=== PATIENT | male | born 1985 | race African-American/Black ===

== ENCOUNTER 2023-12-03 17:32 | Emergency (ER) | payer OTHER, SELFPAY ==
[2023-12-03 17:36] VITALS: BP 142/85; PULSE 74; RESP 16; TEMP 37.2; O2SAT 98; BMI 28.7
--- NOTE | 2023-12-03 18:31 | ED_ITS ---
HPI - Burn/Smoke Inhalation <Modesta Gonzalez PA-C - Last Filed: 12/03/23 18:57> General Chief complaint: Burn/Smoke Inhalation Stated complaint: exposure to generator fumes Time Seen by Provider: 12/03/23 17:54 Source: patient Mode of arrival: Ambulatory History of Present Illness HPI Narrative: Patient is a 38-year-old male who presents due to concern for possible exposure to fumes today. He was at home when a char dust cleaner and salvager came to work in his house. The char dust cleaner and salvager was running their van generator outside his open garage. Could smell the fumes coming into the house. His household carbon monoxide detector alarmed. He left the house with the windows open. Later in the day he called the fire department and they came and used their monitor to test in the house for carbon monoxide. They did not detect any. His alarms were no longer going off. Patient went to urgent care and was sent to the [facility] ER. They told him that his vitals were fine and there was nothing else to do. He came to [facility] for assessment. Patient denies headache, dizziness, nausea, vision changes, weakness, malaise chest tightness or chest pain. He reports that he does feel anxious. He denies having any cough, chest tightness, wheeze after the incident occurred. Related Data Allergies Allergy/AdvReac Type Severity Reaction Status Date / Time No Known Drug Allergies Allergy Verified 12/03/23 17:43 Review of Systems <Modesta Gonzalez PA-C - Last Filed: 12/03/23 18:57> Review of Systems ROS Unobtainable: All systems reviewed & are unremarkable except as noted in HPI and below Patient History <Modesta Gonzalez PA-C - Last Filed: 12/03/23 18:57> Social History Smoking Status: Never smoker Smoking Status: Never smoker Substance Use Type: does not use Exam <Modesta Gonzalez PA-C - Last Filed: 12/03/23 18:57> Narrative Exam Narrative: GENERAL: 38 year old patient appears stated age. Well-developed patient, in no acute distress. NEURO: AOx3. HEAD: Atraumatic. Normocephalic. EYES: Pupils equal round and reactive. Extraocular motions intact. No scleral icterus. No injection or drainage. ENT: Nose without bleeding or purulent drainage. Airway patent. NECK: Trachea midline. Non tender CARDIOVASCULAR: Regular rate and rhythm without murmurs, gallops, or rubs. RESPIRATORY: Clear to auscultation. Breath sounds equal bilaterally. No wheezes, rales, or rhonchi. EXTREMITIES: No edema or joint tenderness. SKIN: No rash or erythema of visible areas Initial Vital Signs Initial Vital Signs: Vital Signs Temperature 98.9 F 12/03/23 17:36 Pulse Rate 74 12/03/23 17:36 Respiratory Rate 16 12/03/23 17:36 Blood Pressure 142/85 H 12/03/23 17:36 Pulse Oximetry 98 12/03/23 17:36 Oxygen Delivery Method Room Air 12/03/23 17:36 <Parveen Askew DO - Last Filed: 12/04/23 07:03> Initial Vital Signs Initial Vital Signs: Vital Signs Temperature 98.9 F 12/03/23 17:36 Pulse Rate 74 12/03/23 17:36 Respiratory Rate 16 12/03/23 17:36 Blood Pressure 142/85 H 12/03/23 17:36 Pulse Oximetry 98 12/03/23 17:36 Oxygen Delivery Method Room Air 12/03/23 17:36 Course <DARRON Sanford Last Filed: 12/03/23 18:57> Vital Signs Vital signs: Vital Signs - 8 hr 12/03/23 17:36 Temperature 98.9 F Pulse Rate 74 Respiratory Rate 16 Blood Pressure 142/85 H Pulse Oximetry 98 Oxygen Delivery Method Room Air <DO Hernán Hackett Last Filed: 12/04/23 07:03> Vital Signs Vital signs: Vital Signs - 8 hr 12/03/23 17:36 Temperature 98.9 F Pulse Rate 74 Respiratory Rate 16 Blood Pressure 142/85 H Pulse Oximetry 98 Oxygen Delivery Method Room Air MDM - Burn/Smoke Inhalation <DARRON Sanford Last Filed: 12/03/23 18:57> MDM Narrative Medical decision making narrative: Multiple etiologies for patient's symptoms considered including, but not limited to: Carbon monoxide exposure/poisoning, anxiety, panic attacks Patient reports a history of panic attacks. This occurred today and he started feeling short of breath, sweaty and like his chest was tight. He is identified the listening to Gospel music and taking deep breaths helps him recover from these events. He asked several questions about panic attacks and how they can be treated. He currently goes to family therapy. Low suspicion for carbon monoxide poisoning today based on my exam. Patient is coherent, anxious, denies any symptoms of headache, dizziness, lethargy, malaise, nausea, visual changes, chest pain, shortness of breath. He appears very well. His vital signs are normal. I provided reassurance that I do not believe that he was exposed to a dangerous level of carbon monoxide. It is reassured that the fire department with to his health there test was negative as well. We discussed making sure his alarms are still working when he gets home in case of any future exposure. Patient's symptoms improved over duration of stay with above-stated therapies. Findings and discharge diagnosis discussed with patient/family followed by verbalization of understanding Return precautions discussed with patient/family whom verbalize understanding of diagnosis and plan Discharge Plan Departure Patient Disposition: Home Clinical Impression: Suspected exposure to hazardous chemical Instructions: Preventing Carbon Monoxide Poisoning Activity Restrictions/Additional Instructions: * you do not have any symptoms of carbon monoxide poisoning today on assessment in the emergency room. Your vital signs are normal. Given the details of the possible exposure, I do not suspect that any new symptoms we will occur. *What to do: *Please continue to take your regular medications as directed. [ ] New medication prescriptions sent to your pharmacy: [ ] [ ] New medication written as a paper prescription [x] No new medications given *Please follow up with your primary care provider in 2-3 days, call for an appointment. Let them know you were seen in the Emergency Department and that we ask that you be seen in follow up. We will electronically transmit a record of today's note if your PCP is in our system *If you do not have a primary care provider please contact the [facility] Resource line at [phone]. They will ask some questions about your medical history and help get you set up with a doctor in the community. *Return to Emergency Department if you should have any new, worsening or concerning symptoms, such as [fever greater than 101 F, shaking chills, worsening pain, persistent vomiting or other concerning symptoms]. Referrals: ProviderMichi [Primary Care Provider] - Stand Alone Forms: Patient Portal/API ED Sign-out <Parveen Askew DO - Last Filed: 12/04/23 07:03> Cosign ED Attending Cosignature Attestation: Dr Askew Co-Sign Statement: I was available for consultation during this patient's emergency department visit. This chart is signed by myself for administrative purposes only. I did not have direct contact with this patient during this visit. They were seen independently by the APC.
== END 2023-12-03 18:33 | disposition home or self-care (01) ==
PROVIDERS: Emergency Provider Physician Assistant
DX: Z77.098 Contact with and (suspected) exposure to other hazardous, chiefly nonmedicinal, chemicals (principal)
CPT/HCPCS: 99281

== ENCOUNTER 2024-02-03 07:06 | Emergency (ER) | payer OTHER, SELFPAY ==
[2024-02-03 07:10] VITALS: BP 142/73; PULSE 78; RESP 18; TEMP 36.4; O2SAT 99; BMI 28.5
[2024-02-03 07:28] LABS: Appearance Urine UA CLEAR; Bilirubin Urine UA NEGATIVE (NEGATIVE); Color Urine UA YELLOW; Glucose Urine UA NEGATIVE (Negative); Ketones Urine UA NEGATIVE (NEGATIVE); Leukocyte Esterase Urine UA NEGATIVE (NEGATIVE); Nitrite Urine UA NEGATIVE (Negative); Occult Blood Urine UA TRACE-INTACT (Negative); Protein Urine UA NEGATIVE (Negative)
[2024-02-03 07:29] LABS: Urine Volume 10mL (spun)
[2024-02-03 07:33] LABS: Bacteria Urine None Seen; RBC Urine 1-5/HPF (0-5/HPF); WBC Urine None Seen (0-5/HPF)
[2024-02-03 07:34] LABS: Culture Indicated Urine Cult Not Indicated; Squamous Epithelial Cell Urine 0-1 /HPF (0-5/HPF)
--- NOTE | 2024-02-03 07:58 | ED_ITS ---
HPI - Male Genitourinary General Chief complaint: Urogenital-Male Stated complaint: groin are feels light sting per pt Time Seen by Provider: 02/03/24 07:36 Source: patient Mode of arrival: Ambulatory History of Present Illness HPI Narrative: Patient complaints 2 days of dysuria. No urinary frequency urgency. No hematuria. No fever chills. No abdominal pain no flank pain. History of kidney stone he states does not feel like that. No prior history of STDs. Patient denies denies any sexual activity, denies any chance STD. No testicular pain. Denies any urethral discharge Related Data Allergies Allergy/AdvReac Type Severity Reaction Status Date / Time No Known Drug Allergies Allergy Verified 02/03/24 07:15 Review of Systems Review of Systems Narrative: GENERAL: negative chills, fatigue, malaise, fever, sweats. HEENT: negative sinus pain, ear pain, sore throat RESPIRATORY: negative dyspnea, cough CARDIOVASCULAR: negative chest pain, palpitations GASTROINTESTINAL: negative nausea, vomiting, abdominal pain : Positive dysuria, negative frequency, hematuria MUSCULOSKELETAL: negative muscle or bony pain SKIN: negative rash, skin lesions NEUROLOGIC: negative weakness, numbness ROS Unobtainable: All systems reviewed & are unremarkable except as noted in HPI and below Patient History Social History Smoking Status: Never smoker Smoking Status: Never smoker Substance Use Type: does not use Exam Narrative Exam Narrative: GENERAL: in no distress, not toxic not dyspneic HEAD: Normocephalic. EYES: Pupils equal round ENT: Mucous membranes moist. GASTROINTESTINAL: Abdomen soft, non-tender : Normal external exam. Patient is circumcised. Nontender testicles. No urethral discharge. No lesions on the glans penis. No palpable lesions on the testicles. No hernia. No vesicles on the skin. BACK: No flank tenderness. NEURO: AOx4. SKIN: Warm and dry PSYCH: Not anxious, is cooperative Initial Vital Signs Initial Vital Signs: Vital Signs Temperature 97.6 F 02/03/24 07:10 Pulse Rate 78 02/03/24 07:10 Respiratory Rate 18 02/03/24 07:10 Blood Pressure 142/73 H 02/03/24 07:10 Pulse Oximetry 99 02/03/24 07:10 Oxygen Delivery Method Room Air 02/03/24 07:10 Course Orders Ordered: ED Orders 02/03/24 07:20 Chlamydia Gonorrhea PCR -URINE Stat Urinalysis and Microscopic Stat Vital Signs Vital signs: Vital Signs - 8 hr 02/03/24 07:10 Temperature 97.6 F Pulse Rate 78 Respiratory Rate 18 Blood Pressure 142/73 H Pulse Oximetry 99 Oxygen Delivery Method Room Air MDM - Male Genitourinary Lab Data Labs: Lab Results 02/03/24 Range/Units 07:20 Urine Color Yellow Urine Appearance Clear Urine pH 7.0 (4.5-8.0) Ur Specific [place] 1.010 (1.000-1.035) Urine Protein Negative (Negative) Urine Glucose (UA) Negative (Negative) g/dL Urine Ketones Negative (NEGATIVE) Urine Occult Blood Trace-intact (Negative) Urine Nitrate Negative (Negative) Urine Bilirubin Negative (NEGATIVE) Urine Urobilinogen 1.0 (0.2) E.U./dL Ur Leukocyte Esterase Negative (NEGATIVE) Urine RBC 1-5/hpf (0-5/HPF) Urine WBC None seen (0-5/HPF) Ur Squamous Epith Cells 0-1 /hpf (0-5/HPF) Urine Bacteria None seen (None) Ur Culture Indicated? Cult not indicated Vol Urine Centrifuged 10ml (spun) Ur Chlamydia DNA (PCR) Not detected N gonorrhoeae DNA (PCR) Not detected [facility] Narrative Medical decision making narrative: Patient complaints 2 days of dysuria. No urinary frequency urgency. No hematuria. No fever chills. No abdominal pain no flank pain. History of kidney stone he states does not feel like that. No prior history of STDs. Patient denies denies any sexual activity, denies any chance STD. No testicular pain. Denies any urethral discharge After history and exam urinalysis/GC chlamydia urine specimen [facility] Medical records reviewed: No recent visit for this complaint Differential considered: Includes but not limited to urethritis GC chlamydia Trichomonas UTI kidney stone Lab Test results independently reviewed as above. Pertinent findings: Urinalysis negative nitrite negative leuk esterase Treatments: None indicated Re-evaluations: Reviewed with patient exam findings and urinalysis. At this time nonspecific dysuria and lack of other symptoms no antibiotics or imaging or blood work indicated. Urology referral provided. He does agree. Return precautions reviewed. He desires discharge home Discussion: Appropriate for discharge home. Urology referral provided. Given lack of other symptoms other than slight discomfort at end of urination for the past couple of days no imaging or blood work indicated. Clinically not a kidney stone. Patient has had kidney stones in the past and does not feel like that. No testicular discomfort complaints. Exam testicles reassuring and no imaging indicated at this time. No prescriptions indicated at this time. Diagnosis: Dysuria Discharge Plan Departure Patient Disposition: Home Clinical Impression: Dysuria Instructions: DI for Dysuria -- Adult Activity Restrictions/Additional Instructions: At this time your urine specimen results/lab results do not show any signs of infection. No blood work or imaging is indicated today. However, urology referral has been provided. Please call the office to make appointment to be seen within a week. Keep well hydrated. Return if worse or if any questions or concerns. No prescriptions or antibiotics are indicated at this time. Referrals: Chinmay Martínez MD [Physician] - Stand Alone Forms: Patient Portal/API
[2024-02-03 08:38] VITALS: BP 148/76; PULSE 68; RESP 18; TEMP 36.7; O2SAT 98
[2024-02-03 08:56] LABS: Urine N gonorrhoeae NOT DETECTED
[2024-02-03 08:57] LABS: Urine Chlamydia NOT DETECTED
== END 2024-02-03 08:39 | disposition home or self-care (01) ==
PROVIDERS: Emergency Provider Emergency Medicine
DX: R30.0 Dysuria (principal)
CPT/HCPCS: 81001; 87491; 87591; 99281; 99282

== ENCOUNTER → 2024-03-16 08:53 | Outpatient (CLI) | payer OTHER, SELFPAY ==
[2024-03-16 10:10] LABS: Cholesterol 180 mg/dL (140-199); HDL Cholesterol 44 mg/dL (40-60); LDL Cholesterol Calculated 123 mg/dL (<100); Triglycerides 63 mg/dL (35-150)
== END ==
LOC: LAB 08:54
PROVIDERS: PCP Student in an Organized Health Care Education/Training Program; Referring Provider Student in an Organized Health Care Education/Training Program; Visit Provider Student in an Organized Health Care Education/Training Program
DX: E78.5 Hyperlipidemia, unspecified (principal)
CPT/HCPCS: 36415; 80061

== ENCOUNTER 2024-04-03 08:05 | Emergency (ER) | payer OTHER, SELFPAY ==
[2024-04-03 08:12] VITALS: BP 146/83; PULSE 91; RESP 19; TEMP 36.6; O2SAT 100; BMI 28.5
--- NOTE | 2024-04-03 08:43 | ED.NECK ---
HPI - Neck Pain/Injury General Chief Complaint: Neck Pain/Injury Stated Complaint: strain neck swallowing discomfort Time Seen by Provider: 04/03/24 08:40 Source: patient, RN notes reviewed and old records reviewed Mode of arrival: Ambulatory Limitations: no limitations History of Present Illness HPI Narrative: 38-year-old male history of hypertension, dyslipidemia who presents with complaint of discomfort with swallowing and movement of his neck. 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 Patient states he did not think much about but over the next day or 2 started to have more discomfort particularly with swallowing. He states it is more comfortable when he extends his neck more uncomfortable when he flexes. He states he can swallow, he has not had any dysphagia, cough or choking, he has not had any difficulty with secretions. He does note movement makes it worse. He can exacerbated with rotation particularly to the right. Denies any other injuries, no chest pain or shortness of breath, no syncope, no fevers, no ear pain, no throat pain, no cold cough or congestive symptoms. Patient has not any nausea or vomiting or other GI symptoms. Has not had any puffiness or swelling of his chest. Denies any numbness tingling or weakness of extremities. Patient states we tried some which was minimally helpful. States he has had a appendicitis in the , no tobacco, wine occasionally, no recreational drugs. Dr. Rice is his primary care physician. Related Data Home Medications Medication Instructions Recorded Confirmed atorvastatin 10 mg tablet 10 mg PO DAILY 03/15/24 03/15/24 losartan 25 mg tablet 25 mg PO DAILY 03/15/24 03/15/24 rosuvastatin 40 mg tablet 40 mg PO DAILY 03/15/24 03/15/24 Allergies Allergy/AdvReac Type Severity Reaction Status Date / Time No Known Drug Allergies Allergy Verified 03/15/24 11:14 Review of Systems Review of Systems ROS Unobtainable: All systems reviewed & are unremarkable except as noted in HPI and below Patient History Social History Smoking Status: Never smoker Smoking Status: Never smoker alcohol intake frequency: a few times a month Alcohol type: wine Substance Use Type: does not use Exam Narrative Exam Narrative: GEN: well nourished, well appearing male, alert and oriented x 3, patient appears to be in mild distress. HEENT: Atraumatic, pupils are equal round reactive to light, extraocular movements are intact, nares are clear, TMs are clear with no fluid, there is no conjunctival pallor. Throat is clear without any exudates, erythema, mild bilateral tonsillar enlargement, no uvular deviation, normal speech. No drooling or trismus. No thyromegaly, normal movement of the hyoid with swallow palpation. NECK: No cervical vertebral tenderness, normal range of motion, no warmth, erythema, no skin changes. Difficulty with secretions. HEART: Regular rate and rhythm without murmur, clicks, rubs. LUNGS:Lungs clear to auscultation, no wheezes, rales, crackles, chest moves symmetrically ABD:bowel sounds normal, soft, non-tender, no guarding, rebound, rigidity, no masses noted, no hepatosplenomegaly MSCL: Non-tender, no muscle atrophy, muscles strength 5/5 upper and lower extremities, full range of motion, normal gait NEURO:CN 2-12 intact, sensation normal SKIN: No warmth, erythema or other skin changes Initial Vital Signs Initial Vital Signs: Vital Signs Temperature 98 F 04/03/24 08:12 Pulse Rate 91 H 04/03/24 08:12 Respiratory Rate 19 04/03/24 08:12 Blood Pressure 146/83 H 04/03/24 08:12 Pulse Oximetry 100 04/03/24 08:12 Oxygen Delivery Method Room Air 04/03/24 08:12 Course Orders Ordered: ED Orders 04/03/24 08:58 Chest [XR chest 1V] Stat Vital Signs Vital signs: Vital Signs - 8 hr 04/03/24 08:12 Temperature 98 F Pulse Rate 91 H Respiratory Rate 19 Blood Pressure 146/83 H Pulse Oximetry 100 Oxygen Delivery Method Room Air MDM - Neck Pain/Injury Imaging Data Chest x-ray: Radiologist's Impression: Close Chest X-Ray (Signed) Chinmay Mata - 04/03/24 Launch?[address] [address] XRay Report Signed Patient: Misael Barros MR#: [id number] : 1985 Acct:[id number] Age/Sex: 38 / M Date of Service: 04/03/24 Loc: ED Accession Number: [id number] Procedure: XR chest 1V Ordering Provider: Jeanine Law D.O. PROCEDURE: XR CHEST 1V INDICATIONS: pain swallowing, neck strain, substernal TECHNIQUE: One view of the chest was acquired. COMPARISON: None. FINDINGS: Surgical changes and devices: None. Lungs and pleura: Lungs are clear. No pleural effusions or pneumothorax. Mediastinum: Mediastinal contours appear normal. Heart size is normal. Bones and chest wall: No suspicious bony lesions. Overlying soft tissues appear unremarkable. IMPRESSION: No acute cardiopulmonary abnormality is seen. Dictated by: Chinmay Mata M.D. on 04/03/2024 at 8:57 Approved by: Chinmay Mata M.D. on 04/03/2024 at 8:58 [facility] Narrative Medical decision making narrative: 38-year-old male with complaint of painful swallowing but more substernal, did not have any foreign body sensation otherwise he does note that he seemed to strain his neck several days ago and then symptoms started after this. Symptoms are exacerbated with flexion of the neck improved with extension, is not having any difficulty swallowing. Suspect more muscle strain. Patient's exam overall reassuring and no infectious changes appreciated. X-ray was obtained to evaluate for any pneumomediastinum or other changes this showed no changes. Patient felt appropriate for discharge home, Tylenol/ibuprofen as needed. Time and discussed return precautions. Discharge Plan Departure Patient Disposition: Home Clinical Impression: Cervical strain, acute Activity Restrictions/Additional Instructions: I suspect that you have a strain of the muscles of your neck causing your discomfort with swallowing. If it is persisting and not improving over the next week please follow up with primary care. You can take Tylenol up to a 1000 mg and/or ibuprofen up to 600 mg as needed for pain. Please return to the emergency department if you are having any fevers, if your symptoms are progressing, if you are having difficulty with swallowing, if you are having difficulty with swallowing fluids or your own secretions/saliva, coughing or choking, new chest pain or shortness of breath, nausea or vomiting any redness, swelling, voice changes or other new or concerning changes. Prescriptions: No Action rosuvastatin 40 mg tablet 40 mg PO DAILY losartan 25 mg tablet 25 mg PO DAILY atorvastatin 10 mg tablet 10 mg PO DAILY Referrals: Shy Rice MD [Primary Care Provider] - Stand Alone Forms: Patient Portal/API
--- NOTE | 2024-04-03 08:58 | DI.RAD.S_ITS ---
PROCEDURE: XR CHEST 1V INDICATIONS: pain swallowing, neck strain, substernal TECHNIQUE: One view of the chest was acquired. COMPARISON: None. FINDINGS: Surgical changes and devices: None. Lungs and pleura: Lungs are clear. No pleural effusions or pneumothorax. Mediastinum: Mediastinal contours appear normal. Heart size is normal. Bones and chest wall: No suspicious bony lesions. Overlying soft tissues appear unremarkable. IMPRESSION: No acute cardiopulmonary abnormality is seen. Dictated by: Chinmay Mata M.D. on 04/03/2024 at 8:57 Approved by: Chinmay Mata M.D. on 04/03/2024 at 8:58
--- NOTE | 2024-04-03 09:46 | PC.NURSE ---
See triage note; neck pain following vacuuming. Tenderness/sensitivity to front of neck when swallowing.
[2024-04-03 10:16] VITALS: BP 149/77; PULSE 74; RESP 16; O2SAT 100
== END 2024-04-03 10:17 | disposition home or self-care (01) ==
PROVIDERS: Emergency Provider Emergency Medicine; PCP Student in an Organized Health Care Education/Training Program
DX: S16.1XXA Strain of muscle, fascia and tendon at neck level, initial encounter (principal); X50.0XXA Overexertion from strenuous movement or load, initial encounter
CPT/HCPCS: 71045; 99281; 99282

== ENCOUNTER → 2024-05-17 10:20 | Outpatient (CLI) | payer OTHER, SELFPAY ==
[2024-05-17 13:16] LABS: Cholesterol 233 mg/dL (140-199); HDL Cholesterol 46 mg/dL (40-60); LDL Cholesterol Calculated 176 mg/dL (<100); Triglycerides 53 mg/dL (35-150)
== END ==
PROVIDERS: PCP Student in an Organized Health Care Education/Training Program; Referring Provider Student in an Organized Health Care Education/Training Program; Visit Provider Student in an Organized Health Care Education/Training Program
DX: E78.5 Hyperlipidemia, unspecified (principal)
CPT/HCPCS: 36415; 80061

== ENCOUNTER → 2024-08-30 10:41 | Outpatient (CLI) | payer OTHER, SELFPAY ==
[2024-08-30 12:03] LABS: Cholesterol 180 mg/dL (140-199); HDL Cholesterol 43 mg/dL (40-60); LDL Cholesterol Calculated 127 mg/dL (<100); Triglycerides 52 mg/dL (35-150)
== END ==
PROVIDERS: PCP Student in an Organized Health Care Education/Training Program; Referring Provider Student in an Organized Health Care Education/Training Program; Visit Provider Student in an Organized Health Care Education/Training Program
DX: E78.5 Hyperlipidemia, unspecified (principal); I10 Essential (primary) hypertension
CPT/HCPCS: 36415; 80061

== ENCOUNTER → 2025-05-10 09:18 | Outpatient (CLI) | payer OTHER, SELFPAY ==
[2025-05-10 10:26] LABS: Influenza A - CEPHEID Flu A NEGATIVE (NEGATIVE); Influenza B - CEPHEID Flu B NEGATIVE (NEGATIVE)
[2025-05-10 10:54] LABS: COVID-19 CEPHEID 4-PLEX PCR Negative (Negative)
== END ==
PROVIDERS: PCP Student in an Organized Health Care Education/Training Program; Visit Provider Physician Assistant Medical
DX: R05.1 Acute cough (principal); J02.9 Acute pharyngitis, unspecified
CPT/HCPCS: 87070; 87637

== ENCOUNTER → 2025-09-12 09:22 | Outpatient (CLI) | payer OTHER, SELFPAY ==
[2025-09-12 10:47] LABS: Blood Urea Nitrogen 14 mg/dL (9-20); Cholesterol 238 mg/dL (140-199); Estimated Glomerular Filt Rate > 60 mL/min (>60); HDL Cholesterol 49 mg/dL (40-60); Triglycerides 58 mg/dL (35-150)
[2025-09-12 11:15] LABS: Thyroid Stimulating Hormone 1.51 uIU/mL (0.47-4.68)
== END ==
PROVIDERS: PCP Student in an Organized Health Care Education/Training Program; Referring Provider Student in an Organized Health Care Education/Training Program; Visit Provider Student in an Organized Health Care Education/Training Program
DX: I10 Essential (primary) hypertension (principal); I48.91 Unspecified atrial fibrillation; E78.5 Hyperlipidemia, unspecified
CPT/HCPCS: 36415; 80061; 82043; 82565; 82570; 84443; 84520